=== PATIENT | male | born 1940 | race Caucasian/White ===

== ENCOUNTER 2019-07-24 09:06 | Emergency (ER) | payer OTHER ==
[~2019-07-24] VITALS: Ht 167.6 cm; Wt 95.0 kg
[2019-07-24] MEDS ORDERED: AMMONIA 1 EA AMP IH ONE (09:24)
[2019-07-24] MEDS ORDERED: METO25 PO (09:34)
[2019-07-24] MEDS ORDERED: AMLO5TAB9 PO (09:34)
[2019-07-24] MEDS ORDERED: DABI75CA3 PO (09:34)
[2019-07-24] MEDS ORDERED: METF-960 PO (09:34)
[2019-07-24] MEDS ORDERED: LISI-662 PO (09:34)
[2019-07-24] MEDS ORDERED: PIOG30TA10 PO (09:34)
[2019-07-24] MEDS ORDERED: GLIP10 PO (09:34)
[2019-07-24] MEDS ORDERED: ALLO300 PO (09:34)
[2019-07-24] MEDS ORDERED: OMEP20 PO (09:34)
[2019-07-24 09:50] LABS: BASOPHILS % (AUTO) 1.1 % (0.0-2.0); EOSINOPHILS % (AUTO) 3.1 % (1.0-6.0); HEMATOCRIT 33.9 % (41-53); HEMOGLOBIN 11.1 g/dL (13.5-17.5); MEAN CORPUSCULAR HEMOGLOBIN 27.4 pg (26.0-34.0); MEAN CORPUSCULAR HGB CONC 32.8 G/dL (31.0-37.0); MEAN CORPUSCULAR VOLUME 84 fL (80-100); MONOCYTES # (AUTO) 0.5 K/uL (0.1-1.0); MONOCYTES % (AUTO) 8.1 % (2.0-9.0); NEUTROPHILS # (AUTO) 3.6 K/uL (1.8-7.7); NEUTROPHILS % (AUTO) 56.7 % (40.0-70.0); PLATELET COUNT (AUTO) 336 K/uL (150-450); RED BLOOD CELL COUNT(AUTO) 4.06 MIL/uL (4.50-5.90); RED CELL DISTRIBUTION WIDTH 15.4 % (11.5-14.5)
[2019-07-24] MEDS ORDERED: SODIUM CHLORIDE 0.9% 1,000 ML IV ONE ×2 (10:00)
[2019-07-24 10:07] LABS: LACTIC ACID 0.9 mmol/L (0.4-2.0)
[2019-07-24 10:12] LABS: ANION GAP 6 mmol/L (8-16); CALCIUM, TOTAL 8.7 mg/dL (8.8-10.5); CARBON DIOXIDE 29 mmol/L (22-29); CHLORIDE 103 mmol/L (98-107); CREATININE 1.22 mg/dL (0.60-1.30); GLOMERULAR FILTR. RATE CALC 57 mL/min (>60); GLUCOSE,RANDOM 144 mg/dL (70-110); POTASSIUM 3.9 mmol/L (3.5-5.1); SODIUM SERUM 138 mmol/L (136-145); UREA NITROGEN, BLOOD 15 mg/dL (7-18)
[2019-07-24 10:13] LABS: INR 1.1 (0.9-1.1); PROTHROMBIN TIME 11.4 SEC (9.4-11.6)
[2019-07-24 10:17] LABS: ACETAMINOPHEN < 2 mcg/mL (10-30); ALANINE AMINOTRANSFERASE 21 U/L (12-78); ALBUMIN 3.6 g/dL (3.4-5.0); ALKALINE PHOSPHATASE 80 U/L (46-116); ASPARTATE AMINOTRANSFERASE 16 U/L (15-37); BILIRUBIN,TOTAL 0.6 mg/dL (0.1-1.0); CREATINE KINASE, TOTAL ONLY 65 U/L (39-308); FREE T4 (FREE THYROXINE) 0.83 ng/dL (0.76-1.46); LIPASE 82 U/L (73-393); THYROID STIMULATING HORMONE 0.53 uIU/mL (0.36-3.74); TOTAL PROTEIN, SERUM 7.1 g/dL (6.4-8.2)
[2019-07-24 10:37] LABS: SALICYLATE 0.7 mg/dL (2.8-20.0)
[2019-07-24 12:11] VITALS: BP 142/71
[2019-07-24 12:31] LABS: GLUCOSE,POINT OF CARE 114 MG/DL (70-110)
== END 2019-07-24 13:32 | disposition short-term general hospital (02) ==
LOC: EMS 09:07
DX: T46.4X2A Poisoning by angiotensin-converting-enzyme inhibitors, intentional self-harm, initial encounter (principal); T50.4X2A Poisoning by drugs affecting uric acid metabolism, intentional self-harm, initial encounter; T47.1X2A Poisoning by other antacids and anti-gastric-secretion drugs, intentional self-harm, initial encounter; E11.9 Type 2 diabetes mellitus without complications; I10 Essential (primary) hypertension; Z79.899 Other long term (current) drug therapy; Z79.84 Long term (current) use of oral hypoglycemic drugs; Y92.89 Other specified places as the place of occurrence of the external cause
CPT/HCPCS: 36415; 74022; 80053; 82550; 82962; 83605; 83690; 84439; 84443; 84484; 85025; 85610; 85730; 93005; 99285; G0480; J7030; 82948; G0481